=== PATIENT | female | born 1985 | race Two or more races ===

== ENCOUNTER → 2024-08-06 | Outpatient (CLI) | payer MEDICAID, SELFPAY ==
--- NOTE | 2024-08-06 09:30 | XR_ITS ---
Examination: Screening digital mammography, bilateral Computer aided detection 3-D breast Tomosynthesis, bilateral Date and time of exam: August 06, 2024 0935 hours Indication: Screening Technique: Nonmagnified MLO, CC views of the breasts to been obtained, reconstructed from 3-D Tomosynthesis images. R2 computer aided detection program utilized for evaluation of suspicious masses and/or abnormal calcifications. 3-D Tomosynthesis images obtained. Findings: Scattered areas of fibroglandular density. Benign calcifications. 9 mm round nodule partially circumscribed upper outer left breast Impression: BI-RADS Category 0: Incomplete: Need additional imaging evaluation 9 mm round nodule upper outer left breast, recommend follow-up spot tomographic views of this nodule as well as bilateral breast sonography to complete the workup
== END | disposition home or self-care (01) ==
LOC: CDIM 09:29
PROVIDERS: Referring Provider Nurse Practitioner Family; Visit Provider Nurse Practitioner Family
DX: Z12.31 Encounter for screening mammogram for malignant neoplasm of breast (principal); N63.21 Unspecified lump in the left breast, upper outer quadrant
CPT/HCPCS: 77063; 77067

== ENCOUNTER → 2024-09-03 | Outpatient (CLI) | payer MEDICAID, SELFPAY ==
--- NOTE | 2024-09-03 | XR_ITS ---
Examination: Diagnostic digital mammography, unilateral, left Computer aided detection 3-D breast Tomosynthesis, unilateral Date and time of exam: September 03, 2024 0941 hours INDICATIONS: Mammogram August 06, 2024 9 mm nodule upper outer left breast Technique: Nonmagnified MLO, CC views of the left breast have been obtained, reconstructed from 3-D Tomosynthesis images. R2 computer aided detection program utilized for evaluation of suspicious masses and/or abnormal calcifications. 3-D Tomosynthesis images obtained. Findings: Scattered areas of fibroglandular density 9 mm nodule circumscribed remains upper outer left breast, probably benign Impression: BI-RADS category 3: Probably benign findings One additional 6 month left mammogram follow-up is needed to document stability of left breast nodule described above
--- NOTE | 2024-09-03 09:05 | XR_ITS ---
Examination: Breast ultrasound complete, bilateral Date and time of exam: September 03, 2024 0912 hours INDICATIONS: Mammogram August 06, 2024 9 mm nodule upper outer left breast Technique: Real-time grayscale ultrasonographic imaging bilateral breasts, including all 4 quadrants as well as nipple retroareolar and axillary regions. Findings: Sonographic images right breast 2:00 nodule circumscribed 5 x 6 x 7 mm 8:00 cyst 6 x 5 mm Retroareolar cyst 8 x 8 mm Sonographic images left breast 2:00 cyst 9 x 9 mm Retroareolar cyst 10 x 9 mm Retroareolar cyst 6 x 7 mm No solid nodules IMPRESSION: BI-RADS Category 3: Probably benign findings Recommend 1 additional 6 month right breast sonogram follow-up to document stability of 2:00 nodule described above
== END | disposition home or self-care (01) ==
PROVIDERS: PCP Nurse Practitioner Family; Referring Provider Nurse Practitioner Family; Visit Provider Nurse Practitioner Family
DX: R92.332 Mammographic heterogeneous density, left breast (principal); N63.21 Unspecified lump in the left breast, upper outer quadrant; N63.12 Unspecified lump in the right breast, upper inner quadrant
CPT/HCPCS: 76641; 77061; 77065; G0279

== ENCOUNTER → 2024-11-08 | Outpatient (CLI) | payer MEDICAID, SELFPAY ==
--- NOTE | 2024-11-08 13:30 | XR_ITS ---
Examination: Retroperitoneal ultrasound, complete Technique: Multiple high resolution grayscale images of the retroperitoneum obtained, including kidneys and bladder. Exam date and time:November 07,025, 1342 hours INDICATIONS: Low back flank pain 2 years, acute today FINDINGS: Right kidney 11.5 cm renal cortex 1.8 cm Left kidney 9.9 cm cortex 1.6 cm No renal calculi or hydronephrosis No bladder mass or bladder calculi Bladder prevoid volume 611 cc IMPRESSION: No renal calculi or hydronephrosis
== END | disposition home or self-care (01) ==
LOC: CDIM 13:22
PROVIDERS: PCP Nurse Practitioner Family; Referring Provider Nurse Practitioner Family; Visit Provider Nurse Practitioner Family
DX: M54.50 Low back pain, unspecified (principal)
CPT/HCPCS: 76770

== ENCOUNTER → 2025-03-29 | Outpatient (CLI) | payer MEDICAID, SELFPAY ==
--- NOTE | 2025-03-29 13:00 | XR_ITS ---
Examination: Breast ultrasound, unilateral, left complete Date and time of exam: March 29, 2025, 1305 hours INDICATIONS: Mammogram 12/04/2024 9 mm nodule upper outer left breast Technique: Real-time levi scale ultrasonographic imaging performed left breast including all 4 quadrants as well as nipple retroareolar and axillary region. Findings: 2:00 cyst 4 x 4 mm Retroareolar cyst 16 x 8 mm Retroareolar cyst 4 x 5 mm No solid nodules IMPRESSION: BI-RADS Category 2: Benign findings
--- NOTE | 2025-03-29 13:30 | XR_ITS ---
Examination: Diagnostic digital mammography, unilateral, left Computer aided detection 3-D breast Tomosynthesis, unilateral Date and time of exam: 03/29/2025, 1:21 p.m. Comparisons: July 2024, August 2024 Indications: Follow-up probably benign 9 mm left upper outer abnormality Technique: Nonmagnified MLO, CC views of the left breast have been obtained, reconstructed from 3-D Tomosynthesis images. R2 computer aided detection program utilized for evaluation of suspicious masses and/or abnormal calcifications. 3-D Tomosynthesis images obtained. Technologist: Findings: The breasts are heterogeneously dense, which may obscure small masses. This oval circumscribed masses are again seen and appear unchanged in the outer breast and in the retroareolar region. Otherwise no evidence of suspicious masses or calcifications. These findings correspond to the abnormalities seen on ultrasound. Overall findings are probably benign. Recommend 6-month follow-up diagnostic left breast mammogram and ultrasound Impression: BI-RADS category 3: Probably benign, short term follow-up
== END | disposition home or self-care (01) ==
LOC: CDIM 12:28
PROVIDERS: PCP Family Medicine; Referring Provider Nurse Practitioner Family; Visit Provider Nurse Practitioner Family
DX: R92.332 Mammographic heterogeneous density, left breast (principal)
CPT/HCPCS: 76641; 77061; 77065; G0279